=== PATIENT | male | born 1945 | race Caucasian/White ===

== ENCOUNTER → 2016-12-04 | Outpatient (CLI) | payer MEDICARE, OTHER | END | disposition home or self-care (01) | LOC: PCVCIMAG 10:06 | PROVIDERS: ATTEND Internal Medicine Cardiovascular Disease | DX: I25.10 Atherosclerotic heart disease of native coronary artery without angina pectoris (principal); I10 Essential (primary) hypertension; K21.9 Gastro-esophageal reflux disease without esophagitis; E78.00 Pure hypercholesterolemia, unspecified; Z95.5 Presence of coronary angioplasty implant and graft | CPT/HCPCS: 93325; 93351; G0463 ==

== ENCOUNTER → 2017-11-26 | Outpatient (CLI) | payer MEDICARE, OTHER | END | disposition home or self-care (01) | LOC: PCVCIMAG 08:56 | DX: I25.10 Atherosclerotic heart disease of native coronary artery without angina pectoris (principal); E78.5 Hyperlipidemia, unspecified; I34.0 Nonrheumatic mitral (valve) insufficiency; E78.00 Pure hypercholesterolemia, unspecified; K21.9 Gastro-esophageal reflux disease without esophagitis; Z79.82 Long term (current) use of aspirin; Z79.899 Other long term (current) drug therapy | CPT/HCPCS: 93005; 93306; G0463 ==

== ENCOUNTER → 2018-06-03 | Outpatient (CLI) | payer MEDICARE, OTHER | END | disposition home or self-care (01) | LOC: PCVCCLINIC 11:54 | PROVIDERS: ATTEND Internal Medicine Cardiovascular Disease | DX: I25.10 Atherosclerotic heart disease of native coronary artery without angina pectoris (principal); I10 Essential (primary) hypertension; E78.00 Pure hypercholesterolemia, unspecified; K21.9 Gastro-esophageal reflux disease without esophagitis; R06.00 Dyspnea, unspecified; Z86.2 Personal history of diseases of the blood and blood-forming organs and certain disorders involving the immune mechanism; Z79.82 Long term (current) use of aspirin; Z79.899 Other long term (current) drug therapy | CPT/HCPCS: 93005; G0463 ==

== ENCOUNTER → 2018-07-18 | Outpatient (CLI) | payer MEDICARE, OTHER ==
[~2018-07-18] MED LIST: REGADENOSON 0.4 MG/5 ML DISP.SYRIN. IV ONE
--- NOTE | 2018-07-18 12:17 | PCVCIMAG ---
APPROVED REPORT Imaging Protocol: Rest Tc-99m/Stress Tc-99m 1 day Study performed: 07/18/2018 09:36:11 Indication: CAD , Dyspnea Patient Location: Out-Patient Stress Nurse: Lucinda Beckford RN AL Tech:Shauna HarrellWILLIE oliverosMT Ht: 5 ft 8 in Wt: 178 lbs BSA: 1.94 m2 HR: 86 bpm BP: 134/78 mmHg BMI: 27.06 Rhythm: Sinus Rhythm Medical History Medical History: HTN, Hyperlipidemia Medications: ASA, Atenolol, Prilosec, Simvastatin Allergies: No known drug allergies Cardiac Risk Factors: Age Pretest Chest Pain Characteristics: No chest pain Exercise History: Physically active Meds Held (24 hrs): Pt held all meds this am Resting Data Rest SPECT myocardial perfusion imaging was performed in supine position 45 minutes following the intravenous injection of 10.3 mCi of Tc-99m Sestamibi. Time of rest injection: 0900 Date: 07/18/2018 Administration Route: IV Administration Site: Right AC Pharmacologic Stress Pharmacologic stress test was performed by injecting Regadenoson 0.4 mg IV push over 10-15 seconds immediately followed by the intravenous injection of 31.5 mCi of Tc-99m Sestamibi. Time of stress injection: 1030 Date: 07/18/2018 Administration Route: IV Administration Site: Right AC Gated Stress SPECT was performed 45 minutes after stress injection. The images were gated to evaluate regional wall motion and calculate left ventricular ejection fraction. Stress Test Details Stress Test: Pharmacologic stress was paired with low level exercise. Reason for pharmacologic stress test: activity intolerance. HRMax Heart Rate (APMHR): 146 bpm Resting HR: 86 bpmTarget HR (85% APMHR): 124 bpm Max HR Achieved: 130 bpm % of APMHR: 89 Recovery HR: 108 bpm BP Resting BP: 134/78 mmHg Max BP: 124/78 mmHg Recovery BP: 125/67 mmHg ECG Resting ECG: Sinus Rhythm Stress ECG: Sinus Tachycardia ST Change: Non-ischemic Recovery ECG: Sinus Rhythm, normal EKG Clinical Reason for Termination: Completed protocol Stress Symptoms: Dyspnea Exercise duration: 4 min 00 sec Exercise capacity: 1.6 METs Symptoms resolved with caffeine. Study Quality Study: Good Artifact: Mild Diaphragmatic artifact Study Data Post stress, the left ventricular ejection was 83%.. SSS: 0 SRS: 0 SDS: 0 TID = 0.85. Perfusion There is a medium area of mildly reduced uptake in the basal and mid segment of the inferior wall which is seen on the stress images as well as the resting images. This area thickens and moves normally and is most consistent with attenuation artifact. Wall Motion Normal left ventricular wall motion. Nuclear Conclusion ECG Findings: negative for ischemia Clinical Findings: non-diagnostic Nuclear Findings: negative for ischemia Exercise Capacity: not assessed Left Ventricular Function: normal Risk Study: low This study is of low probability for inducible ischemia or prior infarct. Normal global and segmental LV systolic function. Artifact: Mild Diaphragmatic artifact
== END | disposition home or self-care (01) ==
LOC: PCVCIMAG 08:42
PROVIDERS: ATTEND Internal Medicine Cardiovascular Disease
DX: I25.10 Atherosclerotic heart disease of native coronary artery without angina pectoris (principal); I10 Essential (primary) hypertension; E78.00 Pure hypercholesterolemia, unspecified; R06.00 Dyspnea, unspecified; Z79.82 Long term (current) use of aspirin
CPT/HCPCS: 78452; 93017; A9500; G0463; J2785

== ENCOUNTER → 2019-03-31 | Outpatient (CLI) | payer MEDICARE, OTHER | END | disposition home or self-care (01) | LOC: PCVCCLINIC 14:00 | PROVIDERS: ATTEND Internal Medicine Cardiovascular Disease | DX: I25.10 Atherosclerotic heart disease of native coronary artery without angina pectoris (principal); I10 Essential (primary) hypertension; E78.00 Pure hypercholesterolemia, unspecified; K21.9 Gastro-esophageal reflux disease without esophagitis | CPT/HCPCS: 93005; G0463 ==